=== PATIENT | female | born 1970 | race Hispanic/Latino ===

== ENCOUNTER → 2018-06-15 | Outpatient (CLI) | payer BC ==
[~2018-06-15] VITALS: Ht 152.4 cm; Wt 77.1 kg
[~2018-06-15] MED LIST: FUROSEMIDE 10 MG/ML 4ML VIAL IV ONE; FUROSEMIDE 10 MG/ML 4ML VIAL ONE
== END | disposition home or self-care (01) ==
LOC: RAH 10:22
PROVIDERS: ATTEND Urology
DX: N28.81 Hypertrophy of kidney (principal); N26.1 Atrophy of kidney (terminal); N20.0 Calculus of kidney
CPT/HCPCS: 78708; A9562; J1940